=== PATIENT | female | born 1980 | race Caucasian/White ===

== ENCOUNTER 2023-06-07 08:48 | Outpatient (OUT) | payer OTHER, SELFPAY ==
[2023-06-07 09:01] LABS: Basophils Percent Auto 0.6 % (0.2-2.0); Eosinophils Absolute Auto 0.1 10^3/uL (0.0-0.7); Eosinophils Percent Auto 1.9 % (0.9-7.0); Hematocrit 36.6 % (36.0-48.0); Immature Granulocytes Abs Auto 0.01 10^3/uL (0.00-0.03); Immature Granulocytes Pct Auto 0.2 % (0.0-0.5); Lymphocytes Percent Auto 38.3 % (20.5-60.0); Mean Corpuscular HGB Conc 32.8 g/dL (29.9-35.2); Mean Corpuscular Hemoglobin 31.7 pg (26.7-34.0); Mean Corpuscular Volume 96.8 fL (81.0-99.0); Mean Platelet Volume 10.9 fL (9.5-13.5); Monocytes Absolute Auto 0.3 10^3/uL (0.3-0.8); Neutrophils Absolute Auto 2.7 10^3/uL (1.4-6.5); Platelet Count 282 10^3/uL (150-450); Red Blood Count 3.78 10^6/uL (4.20-5.40); Red Cell Distribution Width 11.6 % (11.0-15.0); White Blood Count 5.2 10^3/uL (4.0-11.0)
[2023-06-07 09:40] LABS: Alanine Aminotransferase 16 U/L (14-59); Albumin Globulin Ratio 1.1; Albumin Level 3.8 g/dL (3.4-5.0); Alkaline Phosphatase 132 U/L (46-116); Anion Gap 10.5; Aspartate Amino Transferase 12 U/L (15-37); BUN Creatinine Ratio 10.9; Bilirubin Direct 0.1 mg/dL (0.0-0.2); Bilirubin Total 0.4 mg/dL (0.2-1.0); Calcium 8.7 mg/dL (8.5-10.1); Carbon Dioxide 28.5 mmol/L (21.0-32.0); Chloride 105 mmol/L (98-107); Estimated GFR (African America >60 (>=60); Estimated GFR (Non-African Ame >60 (>=60); Globulin 3.4 g/dL; Glucose 83 mg/dL (74-106); Sodium 140 mmol/L (136-145); Total Protein 7.2 g/dL (6.4-8.2)
[2023-06-10 01:07] LABS: Oxcarbazepine (Trileptal),S 10 ug/mL (10-35)
== END 2023-06-07 08:49 | disposition home or self-care (01) ==
LOC: LAB 08:48
PROVIDERS: Visit Provider Psychiatry & Neurology Neurology
DX: G40.909 Epilepsy, unspecified, not intractable, without status epilepticus (principal)
CPT/HCPCS: 36415; 80048; 80076; 80183; 85025

== ENCOUNTER 2024-05-16 09:19 | Outpatient (OUT) | payer OTHER, SELFPAY ==
[2024-05-16 09:45] LABS: Basophils Percent Auto 0.7 % (0.2-2.0); Eosinophils Absolute Auto 0.1 10^3/uL (0.0-0.7); Eosinophils Percent Auto 1.5 % (0.9-7.0); Hemoglobin 12.5 g/dL (12.0-16.0); Immature Granulocytes Abs Auto 0.02 10^3/uL (0.00-0.03); Immature Granulocytes Pct Auto 0.4 % (0.0-0.5); Lymphocytes Absolute Auto 1.8 10^3/uL (1.2-3.8); Mean Corpuscular HGB Conc 32.9 g/dL (29.9-35.2); Mean Corpuscular Hemoglobin 32.1 pg (26.7-34.0); Mean Corpuscular Volume 97.4 fL (81.0-99.0); Mean Platelet Volume 10.9 fL (9.5-13.5); Monocytes Absolute Auto 0.4 10^3/uL (0.3-0.8); Monocytes Percent Auto 6.7 % (1.7-12.0); Neutrophils Percent Auto 56.7 % (43.0-75.0); Platelet Count 263 10^3/uL (150-450); Red Cell Distribution Width 11.5 % (11.0-15.0); White Blood Count 5.4 10^3/uL (4.0-11.0)
[2024-05-16 10:43] LABS: Alanine Aminotransferase 10 U/L (14-59); Albumin Globulin Ratio 1.3; Alkaline Phosphatase 126 U/L (46-116); Anion Gap 8.8; Aspartate Amino Transferase 8 U/L (15-37); BUN Creatinine Ratio 6.8; Bilirubin Direct 0.1 mg/dL (0.0-0.2); Bilirubin Total 0.5 mg/dL (0.2-1.0); Calcium 9.1 mg/dL (8.5-10.1); Chloride 101 mmol/L (98-107); Estimated GFR (African America >60 (>=60); Estimated GFR (Non-African Ame >60 (>=60); Globulin 3.2 g/dL; Glucose 86 mg/dL (74-106); Potassium 3.8 mmol/L (3.5-5.1); Sodium 136 mmol/L (136-145); Total Protein 7.2 g/dL (6.4-8.2)
[2024-05-20 22:06] LABS: Oxcarbazepine (Trileptal),S 13 ug/mL (10-35)
== END 2024-05-16 09:20 | disposition home or self-care (01) ==
PROVIDERS: Visit Provider Nurse Practitioner Family
DX: G40.909 Epilepsy, unspecified, not intractable, without status epilepticus (principal)
CPT/HCPCS: 36415; 80048; 80076; 80183; 85025

== ENCOUNTER 2025-04-03 08:13 | Outpatient (OUT) | payer OTHER, SELFPAY ==
--- OUTSIDE RECORDS SUMMARY | 2025-03-20 13:40 | XMS_ITS | Encounter Summary ---
Author Organization [facility] Address [address] [place] [address] Care Team Providers Care Master [place] Name Role Phone Unavailable Primary Care Provider Unavailabl e Reason for Visit * Reason Comments Rash Encounter Details Date Type Department Care Team (Late st Contact Info) Description 03/20/2025 1:40 PM EDT Office Visit [facility] [address] [place] [address] Monica Ram PA [address] [place] [address] Rash and other nonspecific skin eruption (Primary Dx) Social History Tobacco Use Types Packs/Day Years Used Date Smoking Tobacco: Never Smokeless Tobacco: Never Alcohol Use Standard Drinks/Week Comments Never 0 (1 standard drink = 0.6 oz pur e alcohol) Comments Unknown Sex and Gender Information Value Date Recorded Sex Assigned at Not on file Legal Sex Female 4:11 PM EDT Gender Identity Not on file Sexual Orientation Not on file documented as of this encounter Progress Notes * KERWIN Swartz - 03/20/2025 1:40 PM EDT Images from the original note were not included. Rash Location: both legs Duration: started last 2023 Severity: moderate Quality: denies itch, denies burning, not painful Modifying Factors: spots become darker with sun exposure Associated symptoms: red spots Current treatments: Patient was seen in urgent care (03/14/25), recommended to follow up with dermatology. Urgent care wanted to due lab work to rule out lupus, and decided not to test at that time. Patient does have cerebral palsy. Patient's mother denies any family hx of lupus. Patient currently does not have a PCP. No joint pain and no swelling. New patient All pertinent medical history, medications, and allergies were reviewed. General Exam: alert, oriented to person, place, and time, normal affect, well appearing accompanied by mother A focused exam completed based on patient reported problems, see below: Skin Exam 1. RASH AND OTHER NONSPECIFIC SKIN ERUPTION Left Thigh - Anterior Erythematous to purplish macules Biopsy today, see procedure note. Suspicious of vasculitis. Patient denies fatigue, weight loss, chills, joint pain, chest pain, SOB,recent viral illness or new medicines Lesion biopsy - Left Thigh - Anterior Type of biopsy: punch Informed consent: discussed and consent obtained Informed consent comment: The risks and benefits were discussed. Risks include, but are not limitedto, bleeding, infection, scarring, pain, & nerve damage. An opportunity to ask questions prior to the procedure was permitted and questions were answered. Patient was prepped and draped in usual sterile fashion: Area cleansed with alcohol. Anesthesia: the lesion was anesthetized in a standard fashion Anesthetic: 1% lidocaine w/ epinephrine 1-100,000 buffered w/ 8.4% NaHCO3 Punch size: 4 mm (A biopsy by punch method was performed using a dermal punch) Suture size: 4-0 Suture type: nylon Suture type comment: Hemostasis was achieved with suture. Suture removal (days): 10 Hemostasis achieved with: suture Outcome: patient tolerated procedure well Post-procedure details: sterile dressing applied and wound care instructions given Post-procedure details comment: Emphasized the need to contact clinic for any signs of infection, uncontrollable bleeding, or complications. Dressing type: bandage Additional details: Amount of lidocaine used: 0.5 ml Number of sutures used: 4 Specimen sent for: H&E Photo taken Lesion biopsy - Left Thigh - Anterior Type of biopsy: punch Informed consent: discussed and consent obtained Informed consent comment: The risks and benefits were discussed. Risks include, but are not limitedto, bleeding, infection, scarring, pain, & nerve damage. An opportunity to ask questions prior to the procedure was permitted and questions were answered. Patient was prepped and draped in usual sterile fashion: Area cleansed with alcohol. Anesthesia: the lesion was anesthetized in a standard fashion Anesthetic: 1% lidocaine w/ epinephrine 1-100,000 buffered w/ 8.4% NaHCO3 Punch size: 4 mm (A biopsy by punch method was performed using a dermal punch) Suture size: 4-0 Suture type: nylon Suture type comment: Hemostasis was achieved with suture. Suture removal (days): 10 Hemostasis achieved with: suture Outcome: patient tolerated procedure well Post-procedure details: sterile dressing applied and wound care instructions given Post-procedure details comment: Emphasized the need to contact clinic for any signs of infection, uncontrollable bleeding, or complications. Dressing type: bandage Additional details: Amount of lidocaine used: 0.5 cc Number of sutures used: 2 Specimen sent for: DIF Photo taken Specimen A - Dermatopathology exam Differential Diagnosis: HSP vs. Leukocytoclastic vasculitis vs. Cutaneous lupus Check Margins: No Diagnosis: (R21) Rash and other nonspecific skin eruption Plan: Lesion biopsy Next Visit: 10-14 day suture removal documented in this encounter Plan of Treatment Upcoming Encounters Date Type Department Care Team (Late st Contact Info) Description 04/03/2025 11:20 AM EDT Office Visit [facility] [address] [place] [id number] Monica Ram PA [address] [place] [address] Scheduled Orders Name Type Priority Associated Diagnoses Order Schedule Dermatopathology exam Pathology and Cytology Timed Rash and other nonspecific skin eruption Release Upon Ordering for 1 Occurrences starting 03/20/2025 documented as of this encounter Procedures Procedure Name Priority Date/Time Associated Diagnosis Comments SKIN / NAIL BIOPSY Routine 03/20/2025 1: 54 PM EDT Rash and other nonspecific skin eruption SKIN / NAIL BIOPSY Routine 03/20/2025 1: 39 PM EDT Rash and other nonspecific skin eruption documented in this encounter Results * Lesion biopsy (03/20/2025 1:54 PM EDT) Narrative Ermelinda Manning LPN - 03/20/2025 1:54 PM EDT Type of biopsy: punch Informed consent: discussed and consent obtained Informed consent comment: The risks and benefits were discussed. Risks include, but are not limited to, bleeding, infection, scarring, pain, & nerve damage. An opportunity to ask questions prior to the procedure was permitted and questions were answered. Patient was prepped and draped in usual sterile fashion: Area cleansed with alcohol. Anesthesia: the lesion was anesthetized in a standard fashion Anesthetic: 1% lidocaine w/ epinephrine 1-100,000 buffered w/ 8.4% NaHCO3 Punch size: 4 mm (A biopsy by punch method was performed using a dermal punch) Suture size: 4-0 Suture type: nylon Suture type comment: Hemostasis was achieved with suture. Suture removal (days): 10 Hemostasis achieved with: suture Outcome: patient tolerated procedure well Post-procedure details: sterile dressing applied and wound care instructions given Post-procedure details comment: Emphasized the need to contact clinic for any signs of infection, uncontrollable bleeding, or complications. Dressing type: bandage Additional details: Amount of lidocaine used: 0.5 cc Number of sutures used: 4 Specimen sent for: DIF Photo taken [facility] DERM PROCEDURE ORDERABLES Lucille cabezas Result * Lesion biopsy (03/20/2025 1:39 PM EDT) Narrative Ermelinda Manning LPN - 03/20/2025 1:39 PM EDT Type of biopsy: punch Informed consent: discussed and consent obtained Informed consent comment: The risks and benefits were discussed. Risks include, but are not limited to, bleeding, infection, scarring, pain, & nerve damage. An opportunity to ask questions prior to the procedure was permitted and questions were answered. Patient was prepped and draped in usual sterile fashion: Area cleansed with alcohol. Anesthesia: the lesion was anesthetized in a standard fashion Anesthetic: 1% lidocaine w/ epinephrine 1-100,000 buffered w/ 8.4% NaHCO3 Punch size: 4 mm (A biopsy by punch method was performed using a dermal punch) Suture size: 4-0 Suture type: nylon Suture type comment: Hemostasis was achieved with suture. Suture removal (days): 10 Hemostasis achieved with: suture Outcome: patient tolerated procedure well Post-procedure details: sterile dressing applied and wound care instructions given Post-procedure details comment: Emphasized the need to contact clinic for any signs of infection, uncontrollable bleeding, or complications. Dressing type: bandage Additional details: Amount of lidocaine used: 0.5 ml Number of sutures used: 4 Specimen sent for: H&E Photo taken Monica SURESH DERM PROCEDURE ORDERABLES Lucille cabezas Result documented in this encounter Visit Diagnoses Diagnosis Rash and other nonspecific skin eruption- Primary documented in this encounter
--- OUTSIDE RECORDS SUMMARY | 2025-04-03 08:16 | XMS_ITS | Encounter Summary ---
Author Organization [facility] Address [address] [place] [address] Care Team Providers Care Sales Program Coordinator Name Role Phone Unavailable Primary Care Provider Unavailabl e Encounter Details Date Type Department Care Team (Latest Contact Info) Description 03/20/2025 Travel Social History Tobacco Use Types Packs/Day Years [...] on file documented as of this encounter Plan of Treatment Upcoming Encounters Date Type Department Care Team (Late st Contact Info) Description 04/03/2025 11:20 AM EDT Office Visit [facility] [address] [place] [address] Monica Ram PA [address] [place] [address] documented as of this encounter Visit Diagnoses Not on filedocumented in this encounter
--- OUTSIDE RECORDS SUMMARY | 2025-04-03 08:17 | XMS_ITS | Encounter Summary ---
Author Organization [facility] Address [address] [address] Care Team Providers Care Terrazzo Polisher Helper Name Role Phone Unavailable Primary Care Provider Unavailabl e Reason for Visit * Reason Onset Date Comments Results 04/01/2025 Encounter Details Date Type Department Care Team (Late Contact Info) Description 04/01/2025 Telephone [facility] [address] [place] [phone] Ermelinda Manning LPN [address] [place] [address] Results Social History Tobacco Use Types Packs/Day Years [...] on file documented as of this encounter Miscellaneous Notes * Telephone Encounter - Ermelinda Manning LPN - 04/01/2025 9:23 AM EDT Faxed [facility] requesting final pathology from biopsy completed on 03/20/2025. documented in this encounter Plan of Treatment Upcoming Encounters Date Type Department Care Team (Late Contact Info) Description 04/03/2025 11:20 AM EDT Office Visit [facility] [address] [place] [address] Monica Ram PA [address] [facility] [address] [place] [address] documented as of this encounter Visit Diagnoses Not on filedocumented in this encounter
--- OUTSIDE RECORDS SUMMARY | 2025-04-03 08:17 | XMS_ITS | Encounter Summary ---
Author Organization [facility] Address [address] [place] [address] Care Team Providers Care [place] Name Role Phone Unavailable Primary Care Provider Unavailabl e Encounter Details Date Type Department Care Team (Latest Contact Info) Description 03/28/2025 Travel Social History Tobacco Use Types Packs/Day [...] Dermatology [address] [place] [address] Monica Ram PA [address] [place] [address] documented as of this encounter Visit Diagnoses Not on filedocumented in this encounter
--- OUTSIDE RECORDS SUMMARY | 2025-04-03 08:17 | XMS_ITS | CCD ---
Author Organization [facility] Care Team Providers Care Pathology Tech Name Role Phone ZACHARIAH RAMIREZ Admitting Unavailable ZACHARIAH RAMIREZ Attending Unavailable CAMPOS, DR MALCOLM Grullon Primary Care Unavailable MISJamie, DR ZEPEDA Consulting Unavailable CAMPOS, DR MALCOLM Grullon Admitting Unavailable CAMPOS, DR MALCOLM Grullon Attending Unavailable CAMPOS, DR MALCOLM Grullon Primary Care Unavailable GASCA, DR MALCOLM Grullon Consulting Unavailable ELLIS, DR GALEANO Admitting Unavailable ELLIS, DR GALEANO Attending Unavailable CAMPOS, DR MALCOLM Grullon Primary Care Unavailable ELLIS, DR GALEANO Consulting Unavailable Unavailable Primary Care Provider UnavailLEILANI Oneill Attending Unavailable ANAAMRIA REDDY Attending Unavailable Medications Current Medications Medication Drug Class(es) Dates Sig (Normalized) Sig (Original) multivitamin (Theragran) tablet (2 sources) take 1 tablet by mouth once daily multivitamin (Theragran) tablet Take 1 tablet by mouth Daily Active OXcarbazepine 600 mg oral tablet (11 sources) Anti-epileptic Agent Start: 12-13-2023 End: 05-24-2024 take 0.5 tablet by mouth once daily in the morning, then take 1 tablet by mouth once daily OXcarbazepine (Trileptal) 600 MG tablet Indications: Epilepsy, unspecified, not intractable, without status epilepticus (HCC) TAKE 1/2 (ONE-HALF) OF A TABLET BY MOUTH EVERY MORNING and ONE TABLET EVERY NIGHT FOR 90 DAYS 135 tablet 3 05/24/2024 Active Problems Active Problems Problem Classification Problem Date Documented Da te Episodic/Chronic Epilepsy; convulsions (14 sources) Epilepsy, unspecified, not intractable, without status epilepticus; Translations: [Seizure disorder] Onset: 06-10-2022 Chronic Other liver diseases (2 sources) Elevated liver enzymes level; Translations: [Abnormal levels of other serum enzymes] 05-24-2024 Episodic Other skin disorders (2 sources) Eruption; Translations: [Rash and other nonspecific skin eruption] 03-20-2025 Episodic Paralysis (6 sources) Cerebral palsy; Translations: [Cerebral palsy, unspecified] Onset: 05-21-2024 05-21-2024 Chronic Unclassified (3 sources) CONTACT W/AND (SUSP) EXPOS COVID-19; Translations: [CONTACT W/AND (SUSP) EXPOS COVID-19] Onset: 03-26-2022 Past or Other Problems Problem Classification Problem Date Documented Da te Episodic/Chronic Unclassified (1 source) CONTACT W/AND (SUSP) EXPOS COVID-19; Translations: [CONTACT W/AND (SUSP) EXPOS COVID-19] Onset: 03-23-2022 Results Test Name Value Interpretation Reference Range Facility No Panel Informationon 03-20 Type of biopsy: punch Informed consent: discussed [...] 2 Specimen sent for: DIF Photo taken [facility] Type of biopsy: punch Informed consent: discussed [...] 4 Specimen sent for: H&E Photo taken [facility] e ALL CBC WITH AUTO DIFFon BASOPHILS ABSOLUTE AUTO 0.0 [facility] Basophils/100 WBC (Bld) 0.7 % 0.2 - 2.0 % [facility] Eosinophils/100 WBC (Bld) 1.5 % 0.9 - 7.0 % [facility] Erythrocyte distribution width (RBC) [Ratio] 11.5 % 11.0 - 15.0 % [facility] Hematocrit (Bld) [Volume fraction] 38.0 % 36.0 - 48.0 % [facility] e Hemoglobin (Bld) [Mass/Vol] 12.5 g/dL 12.0 - 16.0 g/dL [facility] IMMATURE GRANULOCYTES ABS AUTO 0.02 [facility] Immature granulocytes/100 WBC (Bld) 0.4 % 0.0 - 0.5 % [facility] Interpretation and review of laboratory results Abnormal [facility] LYMPHOCYTES ABSOLUTE AUTO 1.8 [facility] Lymphocytes/100 WBC (Bld) 34.0 % 20.5 - 60.0 % [facility] MCH (RBC) [Entitic mass] 32.1 pg 26.7 - 34.0 pg [facility] MCHC (RBC) [Mass/Vol] 32.9 g/dL 29.9 - 35.2 g/dL [facility] MCV (RBC) [Entitic vol] 97.4 fL 81.0 - 99.0 fL [facility] MONOCYTES ABSOLUTE AUTO 0.4 [facility] Monocytes/100 WBC (Bld) 6.7 % 1.7 - 12.0 % [facility] NEUTROPHILS ABSOLUTE AUTO 3.0 [facility] Neutrophils/100 WBC (Bld) 56.7 % 43.0 - 75.0 % [facility] Platelet mean volume (Bld) [Entitic vol] 10.9 fL 9.5 - 13.5 fL [facility] EO # 0.1 [facility] PLT 263 [facility] TB RBC 3.90 Low [facility] WBC 5.4 [facility] OXCARBAZEPINEon 06-15-2022 Oxcarbazepine 12 ug/mL Normal 10-35 [facility] Comment on above: Result Comment: This test was developed and its performance characteristics determined by [facility]. It has not been cleared or approved by the Food and Drug Administration. Detection Limit = 1 Performed By: #### O XCARB #### [facility] [address] [place] [address] Dr. Jocelyn Pride CBC AUTO DIFFon 06-10-2022 BASO # 0.0 103/ul Normal 0.0-0.1 [facility] Comment on above: Performed By: #### C BC #### [facility] [address] [place] [address] Dr. Jocelyn Pride Basophils/100 WBC (Bld) 0.4 % Normal 0.2-2.0 [facility] Comment on above: Performed By: #### C BC #### [facility] [address] [place] [address] Dr. Jocelyn Pride EO # 0.1 103/ul Normal 0.0-0.7 [facility] Comment on above: Performed By: #### C BC #### [facility] [address] [place] [address] Dr. Jocelyn Pride Eosinophils/100 WBC (Bld) 1.5 % Normal 0.9-7.0 [facility] Comment on above: Performed By: #### C BC #### [facility] [address] [place] [address] Dr. Jocelyn Pride Erythrocyte distribution width (RBC) [Ratio] 12.4 % Normal 11.0-15.0 [facility] Comment on above: Performed By: #### C BC #### [facility] [address] [place] [address] Dr. Jocelyn Pride Hematocrit (Bld) [Volume fraction] 37.3 % Normal 36.0-48.0 [facility] Comment on above: Performed By: #### C BC #### [facility] [address] [place] [address] Dr. Jocelyn Pride Hemoglobin (Bld) [Mass/Vol] 12.0 g/dL Normal 12.0-16.0 [facility] Comment on above: Performed By: #### C BC #### [facility] [address] [place] [address] Dr. Jocelyn Pride IG # 0.02 10e3/ul Normal 0.00-0.03 [facility] Comment on above: Performed By: #### C BC #### [facility] [address] [place] [address] Dr. Jocelyn Pride IG % 0.3 % Normal 0.0-0.5 [facility] Comment on above: Performed By: #### C BC #### [facility] [address] [place] [address] Dr. Jocelyn Pride LYMPH # 2.2 103/ul Normal 1.2-3.8 [facility] Comment on above: Performed By: #### C BC #### [facility] [address] [place] [address] Dr. Jocelyn Pride Lymphocytes/100 WBC (Bld) 32.7 % Normal 20.5-60.0 [facility] Comment on above: Performed By: #### C BC #### [facility] [address] [place] [address] Dr. Jocelyn Pride MANUAL DIFF REQ NO Normal [facility] Comment on above: Performed By: #### C BC #### [facility] [address] [place] [address] Dr. Jocelyn Pride MCH (RBC) [Entitic mass] 31.1 pg Normal 26.7-34.0 [facility] Comment on above: Performed By: #### C BC #### [facility] [address] [place] [address] Dr. Jocelyn Pride MCHC (RBC) [Mass/Vol] 32.2 g/dL Normal 29.9-35.2 [facility] Comment on above: Performed By: #### C BC #### [facility] [address] [place] [address] Dr. Jocelyn Pride MCV (RBC) [Entitic vol] 96.6 fL Normal 81.0-99.0 [facility] Comment on above: Performed By: #### C BC #### [facility] [address] [place] [address] Dr. Jocelyn Pride MONO # 0.4 103/ul Normal 0.3-0.8 [facility] Comment on above: Performed By: #### C BC #### [facility] [address] [place] [address] Dr. Jocelyn Pride Monocytes/100 WBC (Bld) 5.3 % Normal 1.7-12.0 [facility] Comment on above: Performed By: #### C BC #### [facility] [address] [place] [address] Dr. Jocelyn Pride NEUT # 4.1 103/ul Normal 1.4-6.5 [facility] Comment on above: Performed By: #### C BC #### [facility] [address] [place] [address] Dr. Jocelyn Pride Neutrophils/100 WBC (Bld) 59.8 % Normal 43.0-75.0 [facility] Comment on above: Performed By: #### C BC #### [facility] [address] [place] [address] Dr. Jocelyn Pride Platelet mean volume (Bld) [Entitic vol] 10.7 fL Normal 9.5-13.5 [facility] Comment on above: Performed By: #### C BC #### [facility] [address] [place] [address] Dr. Jocelyn Pride PLT 290 103/ul Normal 150-450 [facility] Comment on above: Performed By: #### C BC #### [facility] [address] [place] [address] Dr. Jocelyn Pride RBC 3.86 106/ul Critically low 4.20-5.40 [facility] Comment on above: Performed By: #### C BC #### [facility] [address] [place] [address] Dr. Jocelyn Pride WBC 6.8 103/ul Normal 4.0-11.0 [facility] Comment on above: Performed By: #### C BC #### [facility] [address] [place] [address] Dr. Jocelyn Pride LIVER PROFILEon 06-10-2022 Albumin [Mass/Vol] 3.6 g/dL Normal 3.4-5.0 [facility] Comment on above: Performed By: #### Nena CEDILLO, BMP #### [facility] [address] [place] [address] Dr. Jocelyn Pride Albumin/Globulin [Mass ratio] 1.1 {ratio} Normal [facility] Comment on above: Performed By: #### Nena CEDILLO, BMP #### [facility] [address] [place] [address] Dr. Jocelyn Pride ALP [Catalytic activity/Vol] 130 U/L Critically high 46-116 [facility] Comment on above: Performed By: #### Nena CEDILLO BMP #### [facility] [address] [place] [address] Dr. Jocelyn Pride ALT [Catalytic activity/Vol] 10 U/L Critically low 14-59 [facility] Comment on above: Performed By: #### Nena CEDILLO, BMP #### [facility] [address] [place] [address] Dr. Jocelyn Pride AST [Catalytic activity/Vol] 11 U/L Critically low 15-37 [facility] Comment on above: Performed By: #### Nena CEDILLO, BMP #### [facility] [address] [place] [address] Dr. Jocelyn Pride BILI, CONJUGATED 0.1 mg/dL Normal 0.0-0.2 [facility] Comment on above: Performed By: #### Nena CEDILLO, BMP #### [facility] [address] [place], [place] [id number] Dr. Jocelyn Pride Bilirubin [Mass/Vol] 0.2 mg/dL Normal 0.2-1.0 [facility] Comment on above: Performed By: #### L IVER, BMP #### [facility] [address] [place] [address] Dr. Jocelyn Pride Globulin (S) [Mass/Vol] 3.4 g/dL Normal [facility] Comment on above: Performed By: #### L IVER, BMP #### [facility] [address] [place] [address] Dr. Jocelyn Pride Protein [Mass/Vol] 7.0 g/dL Normal 6.4-8.2 [facility] Comment on above: Performed By: #### L IVER, BMP #### [facility] [address] [place] [address] Dr. Jocelyn Pride PROF CHEM 8 (BAS METB)on Anion gap [Moles/Vol] 11.5 mmol/L Normal [facility] Comment on above: Performed By: #### L IVER, BMP #### [facility] [address] [place] [address] Dr. Jocelyn Pride Calcium [Mass/Vol] 8.4 mg/dL Critically low 8.5-10.1 [facility] Comment on above: Performed By: #### L IVER, BMP #### [facility] [address] [place] [address] Dr. Jocelyn Pride Chloride [Moles/Vol] 105 mmol/L Normal 98-107 [facility] Comment on above: Performed By: #### L IVER, BMP #### [facility] [address] [place] [address] Dr. Jocelyn Pride CO2 [Moles/Vol] 26.8 mmol/L Normal 21.0-32.0 [facility] Comment on above: Performed By: #### L IVER, BMP #### [facility] [address] [place] [address] Dr. Jocelyn Pride Creatinine [Mass/Vol] 0.52 mg/dL Critically low 0.55-1.02 [facility] Comment on above: Performed By: #### L IVER, BMP #### [facility] [address] [address] [address] Jocelyn Pride EGFR-AF PRYDEINIG >60 Normal >=60 [facility] Comment on above: Performed By: #### L IVER, BMP #### [facility] [address] [address] [address] Jocelyn Pride EGFR-NON AF PRYDEINIG >60 Normal >=60 [facility] Comment on above: Performed By: #### L IVER, BMP #### [facility] [address] [address] [address] Jocelyn Pride Glucose [Mass/Vol] 90 mg/dL Normal 74-106 [facility] Comment on above: Performed By: #### L IVER, BMP #### [facility] [address] [address] [address] Jocelyn Pride Potassium [Moles/Vol] 4.3 mmol/L Normal 3.5-5.1 [facility] Comment on above: Performed By: #### L IVER, BMP #### [facility] [address] [address] [address] Jocelyn Pride Sodium [Moles/Vol] 139 mmol/L Normal 136-145 [facility] Comment on above: Performed By: #### L IVER, BMP #### [facility] [address] [address] [address] Jocelyn Pride Urea nitrogen [Mass/Vol] 6.0 mg/dL Critically low 7.0-18.0 [facility] Comment on above: Performed By: #### L IVER, BMP #### [facility] [address] [address] [address] Jocelyn Pride Urea nitrogen/Creatinine [Mass ratio] 11.5 mg/mg Normal [facility] Comment on above: Performed By: #### L IVER, BMP #### [facility] [address] [address] [address] Jocelyn Pride Covid-19 PCR ([facility])on SARS-CoV-2 (COVID-19) RNA WILL+probe Ql (Unsp spec) Not detected Normal NOT DETECTED [facility] Comment on above: Result Comment: This test is not yet approved or cleared by the [place] FDA. When there are no FDA-approved or cleared tests available, and other criteria are met, FDA can make tests available under an emergency access mechanism called an Emergency Use Authorization (EUA). The EUA for this test is supported by the [place] of Health and Human Service's (HHS's) declaration that circumstances exist to justify the emergency use of in vitro diagnostics for the detection and/or diagnosis of the virus that causes COVID-19. This EUA will remain in effect (meaning this test can be used) for the duration of the COVID-19 declaration justifying emergency of IVDs, unless it is terminated or revoked by FDA (after which the test may no longer be used). When diagnostic testing is negative, the possibility of a false negative should be considered in the context of a patient's recent exposures and the presence of clinical signs and symptoms consistent with SARS-CoV-2. Performed By: #### C VDTBH #### [facility] [address] [place] [address] Dr. Jocelyn Pride OXCARBAZEPINEon 07-07-2021 Oxcarbazepine 13 ug/mL Normal 10-35 [facility] Comment on above: Result Comment: This test was developed and its performance characteristics determined by [employer]. It has not been cleared or approved by the Food and Drug Administration. Detection Limit = 1 Performed By: #### O XCARB #### [facility] [address] [place] [address] Dr. Jocelyn Pride CBC AUTO DIFFon 07-01-2021 BASO # 0.0 103/ul Normal 0.0-0.1 [facility] Comment on above: Performed By: #### C BC #### [facility] [address] [place] [address] Dr. Jocelyn Pride Basophils/100 WBC (Bld) 0.5 % Normal 0.2-2.0 [facility] Comment on above: Performed By: #### C BC #### [facility] [address] [place] [address] Dr. Jocelyn Pride EO # 0.1 103/ul Normal 0.0-0.7 [facility] Comment on above: Performed By: #### C BC #### [facility] [address] [place] [address] Dr. Jocelyn Pride Eosinophils/100 WBC (Bld) 1.2 % Normal 0.9-7.0 [facility] Comment on above: Performed By: #### C BC #### [facility] [address] [place] [address] Dr. Jocelyn Pride Erythrocyte distribution width (RBC) [Ratio] 12.1 % Normal 11.0-15.0 [facility] Comment on above: Performed By: #### C BC #### [facility] [address] [place] [address] Dr. Jocelyn Pride Hematocrit (Bld) [Volume fraction] 40.7 % Normal 36.0-48.0 [facility] Comment on above: Performed By: #### C BC #### [facility] [address] [place] [address] Dr. Jocelyn Pride Hemoglobin (Bld) [Mass/Vol] 13.1 g/dL Normal 12.0-16.0 [facility] Comment on above: Performed By: #### C BC #### [facility] [address] [place] [address] Dr. Jocelyn Pride IG # 0.02 10e3/ul Normal 0.00-0.03 [facility] Comment on above: Performed By: #### C BC #### [facility] [address] [place] [address] Dr. Jocelyn Pride IG % 0.2 % Normal 0.0-0.5 [facility] Comment on above: Performed By: #### C BC #### [facility] [address] [place] [address] Dr. Jocelyn Pride LYMPH # 2.2 103/ul Normal 1.2-3.8 [facility] Comment on above: Performed By: #### C BC #### [facility] [address] [place] [address] Dr. Jocelyn Pride Lymphocytes/100 WBC (Bld) 26.7 % Normal 20.5-60.0 [facility] Comment on above: Performed By: #### C BC #### [facility] [address] [place] [address] Dr. Jocelyn Pride MANUAL DIFF REQ NO Normal [facility] Comment on above: Performed By: #### C BC #### [facility] [address] [place] [address] Dr. Jocelyn Pride MCH (RBC) [Entitic mass] 30.1 pg Normal 26.7-34.0 [facility] Comment on above: Performed By: #### C BC #### [facility] [address] [place] [address] Dr. Jocelyn Pride MCHC (RBC) [Mass/Vol] 32.2 g/dL Normal 29.9-35.2 [facility] Comment on above: Performed By: #### C BC #### [facility] [address] [place] [address] Dr. Jocelyn Pride MCV (RBC) [Entitic vol] 93.6 fL Normal 81.0-99.0 [facility] Comment on above: Performed By: #### C BC #### [facility] [address] [place] [address] Dr. Jocelyn Pride MONO # 0.5 103/ul Normal 0.3-0.8 [facility] Comment on above: Performed By: #### C BC #### [facility] [address] [place] [address] Dr. Jocelyn Pride Monocytes/100 WBC (Bld) 6.4 % Normal 1.7-12.0 [facility] Comment on above: Performed By: #### C BC #### [facility] [address] [place] [address] Dr. Jocelyn Pride NEUT # 5.3 103/ul Normal 1.4-6.5 [facility] Comment on above: Performed By: #### C BC #### [facility] [address] [place] [address] Dr. Jocelyn Pride Neutrophils/100 WBC (Bld) 65.0 % Normal 43.0-75.0 [facility] Comment on above: Performed By: #### C BC #### [facility] [address] [place] [address] Dr. Jocelyn Pride Platelet mean volume (Bld) [Entitic vol] 10.8 fL Normal 9.5-13.5 [facility] Comment on above: Performed By: #### C BC #### [facility] [address] [place] [address] Dr. Jocelyn Pride PLT 329 103/ul Normal 150-450 [facility] Comment on above: Performed By: #### C BC #### [facility] [address] [place] [address] Dr. Jocelyn Pride RBC 4.35 106/ul Normal 4.20-5.40 [facility] Comment on above: Performed By: #### C BC #### [facility] [address] [place] [address] Dr. Jocelyn Pride WBC 8.2 103/ul Normal 4.0-11.0 [facility] Comment on above: Performed By: #### C BC #### [facility] [address] [place] [address] Dr. Jocelyn Pride LIVER PROFILEon 07-01-2021 Albumin [Mass/Vol] 3.7 g/dL Normal 3.5-5.0 [facility] Comment on above: Performed By: #### B MP, LIVER #### [facility] [address] [place] [address] Dr. Jocelyn Pride Albumin/Globulin [Mass ratio] 1.0 {ratio} Normal [facility] Comment on above: Performed By: #### B MP, LIVER #### [facility] [address] [place] [address] Dr. Jocelyn Pride ALP [Catalytic activity/Vol] 145 U/L Critically high 38-126 [facility] Comment on above: Performed By: #### B MP, LIVER #### [facility] [address] [place] [address] Dr. Jocelyn Pride ALT [Catalytic activity/Vol] 13 U/L Normal 9-52 [facility] Comment on above: Performed By: #### B MP, LIVER #### [facility] [address] [place] [address] Dr. Jocelyn Pride AST [Catalytic activity/Vol] 12 U/L Critically low 14 [facility] Comment on above: Performed By: #### B MP, LIVER #### [facility] [address] [place] [address] Dr. Jocelyn Pride BILI, CONJUGATED 0.1 mg/dL Normal 0.0-0.3 [facility] Comment on above: Performed By: #### B MP, LIVER #### [facility] [address] [place] [address] Dr. Jocelyn Pride Bilirubin [Mass/Vol] 0.4 mg/dL Normal 0.2-1.3 [facility] Comment on above: Performed By: #### B MP, LIVER #### [facility] [address] [place] [address] Dr. Jocelyn Pride Globulin (S) [Mass/Vol] 3.8 g/dL Normal [facility] Comment on above: Performed By: #### B MP, LIVER #### [facility] [address] [place] [address] Dr. Jocelyn Pride Protein [Mass/Vol] 7.5 g/dL Normal 6.1-8.2 [facility] Comment on above: Performed By: #### B MP, LIVER #### [facility] [address] [place] [address] Dr. Jocelyn Pride PROF CHEM 8 (BAS METB)on Anion gap [Moles/Vol] 12.4 mmol/L Normal [facility] Comment on above: Performed By: #### B MP, LIVER #### [facility] [address] [place] [address] Dr. Jocelyn Pride Calcium [Mass/Vol] 9.0 mg/dL Normal 8.4-10.2 [facility] Comment on above: Performed By: #### B MP, LIVER #### [facility] [address] [place] [address] Dr. Jocelyn Pride Chloride [Moles/Vol] 103 mmol/L Normal 98-107 [facility] Comment on above: Performed By: #### B MP, LIVER #### [facility] [address] [place] [address] Dr. Jocelyn Pride CO2 [Moles/Vol] 27.9 mmol/L Normal 22.0-30.0 [facility] Comment on above: Performed By: #### B MP, LIVER #### [facility] [address] [place] [address] Dr. Jocelyn Pride Creatinine [Mass/Vol] 0.60 mg/dL Normal 0.52-1.04 [facility] Comment on above: Performed By: #### B MP, LIVER #### [facility] [address] [place] [address] Dr. Jocelyn Pride EGFR-AF PRYDEINIG >60 Normal >=60 [facility] Comment on above: Performed By: #### B MP, LIVER #### [facility] [address] [place] [address] Dr. Jocelyn Pride EGFR-NON AF PRYDEINIG >60 Normal >=60 [facility] Comment on above: Performed By: #### B MP, LIVER #### [facility] [address] [place] [address] Dr. Jocelyn Pride Glucose [Mass/Vol] 98 mg/dL Normal 74-106 [facility] Comment on above: Performed By: #### B MP, LIVER #### [facility] [address] [place] [address] Dr. Jocelyn Pride Potassium [Moles/Vol] 4.3 mmol/L Normal 3.4-5.0 [facility] Comment on above: Performed By: #### B MP, LIVER #### [facility] [address] [place] [address] Dr. Jocelyn Pride Sodium [Moles/Vol] 139 mmol/L Normal 137-145 [facility] Comment on above: Performed By: #### B MP, LIVER #### [facility] [address] [place] [address] Dr. Jocelyn Pride Urea nitrogen [Mass/Vol] 7.0 mg/dL Normal 7.0-17.0 [facility] Comment on above: Performed By: #### B MP, LIVER #### [facility] [address] [address] [address] Jocelyn Pride Urea nitrogen/Creatinine [Mass ratio] 11.7 mg/mg Normal [facility] Comment on above: Performed By: #### B MP, LIVER #### [facility] [address] [place], [place] [address] Dr. Jocelyn Pride Vital Signs Date Time Vital Sign Value Performing Clinician Faci lity 05-24-2024 08:35-0400 Body height 160 cm Anamaria Reddy [employer] Work Phone: [facility] 05-24-2024 08:35-0400 Body mass index (BMI) [Ratio] 27.46 kg/m2 Anamaria Reddy [employer] Work Phone: [facility] 05-24-2024 08:35-0400 Body weight 70.31 kg Anamaria Reddy [employer] Work Phone: [facility] 05-24-2024 08:35-0400 Diastolic blood pressure 82 mm[Hg] Anamaria Reddy [employer] Work Phone: [facility] 05-24-2024 08:35-0400 Heart rate 80 /min Anamaria Reddy [employer] Work Phone: [facility] 05-24-2024 08:35-0400 SaO2% (BldA) [Mass fraction] 97 % Anamaria Reddy [employer] Work Phone: [facility] 05-24-2024 08:35-0400 Systolic blood pressure 124 mm[Hg] Anamaria Reddy [employer] Work Phone: [facility] Healthcare Encounters Encounter Date Encounter Type Care Provider Facility Start: 03-20-2025 End: 03-20-2025 Pepeboo orderbird AGbarbara SURESH Work Phone: [facility] Start: 03-20-2025 End: 03-20-2025 Bamboo flowsbarbara SURESH Work Phone: [facility] Start: 03-20-2025 End: 03-20-2025 Patient encounter procedure Leilani Ram KERWIN Work Phone: [facility] Comment on above: Rash and other nonsp ecific skin eruption (Primary Dx) Start: 03-20-2025 End: 03-20-2025 ambulatory LEILANI RAM Not Available Start: 05-24-2024 End: 05-24-2024 Bamboo flowsheet Anamaria Reddy [employer] Work Phone: [facility] Start: 05-24-2024 End: 05-24-2024 Bamboo flowsheet Anamaria Reddy [employer] Work Phone: [facility] Start: 05-24-2024 End: 05-24-2024 Office outpatient visit 25 minutes Anamaria Reddy [employer] Work Phone: [facility] Comment on above: Seizure disorder (CM S/HCC) (Primary Dx); Epilepsy, unspecified, not intractable, without status epilepticus (CMS/HCC); Elevated liver enzymes Start: 05-24-2024 End: 05-24-2024 ambulatory ANAMARIA REDDY Not Available Start: 05-16-2024 End: 05-16-2024 Clinisync Result Encounter Anamaria Reddy [employer] Work Phone: [facility] External Department Unsolicited Start: 05-16-2024 End: 05-16-2024 Clinisync Result Encounter Anamaria Reddy [employer] Work Phone: [facility] External Department Unsolicited Start: 06-10-2022 End: 06-11-2022 ambulatory ZACHARIAH [place] Facility:[facility]1 Start: 03-23-2022 End: 03-23-[address] MALCOLM GASCA Facility:[facility] Start: 07-01-2021 End: 07-02-[address] WALESKA CORRAL Facility:[facility] Procedures Date Procedure Procedure Detail Performing Clinician Start: 03-20-2025 End: 03-20-2025 SKIN / NAIL BIOPSY Leilani Ram KERWIN Work Phone: Start: 05-16-2024 ALL CBC WITH AUTO DIFF Anamaria Reddy NP Work Phone: Plan of Treatment Date Care Activity Detail Author Start: 04-15-2025 End: 04-15-2025 Patient encounter procedure 04/15/2025 8:40 AM EDT Office Visit [facility] [address] [place] [address] Anamaria Reddy, NAVJOT [address] [place], [place] [facility] Start: 04-03-2025 End: 04-03-2025 Patient encounter procedure 04/03/2025 11:20 AM EDT Office Visit [facility] [address] [place] [address] Leilani Ram, PA [address] [place] [address] [facility] Start: 03-20-2025 End: 03-20-2025 Patient encounter procedure 03/20/2025 1:40 PM EDT Office Visit [facility] [address] [place] [address] Leilani Ram, PA [address] [place] [phone] Arrived [facility] Comment on above: Arrived Start: 05-24-2024 End: 05-24-2025 Basic metabolic 1998 panel - Serum or Plasma Basic metabolic panel Lab Routine Seizure disorder (CMS/HCC) Expected: 05/24/2024 (Approximate), Expires: 05/24/2025 [facility] Comment on above: Expected: 05/24/2024 (Approximate), Expi res: 05/24/2025 Start: 05-24-2024 End: 05-24-2025 CBC W Auto Differential panel - Blood CBC and differential Lab Routine Seizure disorder (CMS/HCC) Expected: 05/24/2024 (Approximate), Expires: 05/24/2025 [facility] Work Phone: Comment on above: Expected: 05/24/2024 (Approximate), Expi res: 05/24/2025 Start: 05-24-2024 End: 05-24-2025 Hepatic function 2000 panel - Serum or Plasma Hepatic function panel Lab Routine Seizure disorder (CMS/HCC) Expected: 05/24/2024 (Approximate), Expires: 05/24/2025 [facility] Comment on above: Expected: 05/24/2024 (Approximate), Expi res: 05/24/2025 Start: 05-24-2024 End: 05-24-2025 Oxcarbazepine level Oxcarbazepine level Lab Routine Seizure disorder (CMS/HCC) Expected: 05/24/2024 (Approximate), Expires: 05/24/2025 [facility] Comment on above: Expected: 05/24/2024 (Approximate), Expi res: 05/24/2025 Start: 05-24-2024 End: 05-24-2024 Patient encounter procedure [facility] [address] Comment on above: Arrived Dermatopathology exam Dermatopat hology exam Pathology and Cytology Timed Rash and other nonspecific skin eruption Release Upon Ordering for 1 Occurrences starting 03/20/2025 [facility] Healthcare Work Phone: Comment on above: Release Upon Ordering for 1 Occurrences starting 03/20/2025 Payers Date Payer Category Payer Unknown [id number] 2022 Private Health Insurance [id number] 2022 Private Health Insurance [id number] 1981 Unknown [id number] 1981 Unknown [id number] 1981 Unknown [id number] 1981 Unknown [id number] [id number] 1981 Unknown [id number] 1959 Self-pay [id number] Unknown [id number] Social History Date Type Detail Facility Start: 05-21-2024 End: 05-24-2024 Tobacco smoking status ARIS Never smoked tobacco [facility] Start: 05-21-2024 End: 03-20-2025 Alcoholic beverage intake Lifetime non-drinker (finding) [facility] Start: 05-21-2024 End: 03-20-2025 History of Social function [facility] Start: 05-21-2024 End: 03-20-2025 Tobacco use panel [facility] Start: 1980 Sex assigned at Not on file [facility] Start: 05-24-2024 Tobacco use and exposure Smokeless t obacco non-user [facility] Tobacco smoking stat [facility] Tobacco smoking consumption unknown [facility] History of Present illness Narrative 03-20-2025 KERWIN Swartz - 03/20/2025 1:40 PM EDT Note Date & Type Note Facility 03-20-2025 History of Presen t illness Narrative Images from the original note were not [...] weight loss, chills, joint pain, chest pain, SOB, recent viral illness or new medicines Lesion biopsy [...] day suture removal documented in this encounter [facility] Evaluation note Note Date & Type Note Facility Evaluation note Diagnosis Seizure disorder (CMS/HCC)- Primary Unspecified epilepsy without mention of intractable epilepsy Epilepsy, unspecified, not intractable, without status epilepticus (CMS/HCC) Elevated liver enzymes Other nonspecific abnormal serum enzyme levels documented in this encounter [facility] Evaluation note Note Date & Type Note Facility Evaluation note Diagnosis Rash and other nonspecific skin eruption- Primary documented in this encounter [facility] Summary Purpose Family History No Family History Records FoundNo Family History Records Found Advance Directives No Advanced Directives Records FoundNo Advanced Directives Records Found Additional Source Comments INFORMATION SOURCE (unrecogn ized section and content) DATE CREATED AUTHOR 06/16/[address] [facility] DATE CREATED AUTHOR AUTHOR'S ORGANIZ ATION 03/22/2025 [facility] EPIC Reason for Visit (unrecogniz ed section and content) Reason Comments Seizures Headache Reason Comments Rash FOR RECORDS PERTAINING TO PATIENTS WHO ARE OR HAVE BEEN ENROLLED IN A CHEMICAL DEPENDENCY/SUBSTANCEABUSE PROGRAM, SOME INFORMATION MAY BE OMITTED. This clinical summary was aggregated from multiple sources. Caution should be exercised in using it in the provision of clinical care. This summary normalizes information from multiple sources, and as a consequence, information in this document may materially change the coding, format and clinical context of patient data. In addition, data may be omitted in some cases. CLINICAL DECISIONS SHOULD BE BASED ON THE PRIMARY CLINICAL RECORDS. [facility] [email or web address] [facility]. provides no warranty or guarantee of the accuracy or completeness of information in this document.
--- OUTSIDE RECORDS SUMMARY | 2025-04-03 08:17 | XMS_ITS | Encounter Summary ---
Author Organization [facility] Address [address] [place] [address] Care Team Providers Care Manager Program Management Name Role Phone Unavailable Primary Care Provider Unavailabl e Encounter Details Date Type Department Care Team (Late st Contact Info) Description 03/20/2025 Bamboo flowsheet [facility] [address] [place] [address] Monica Ram PA [address] [place] [address] Social History Tobacco Use Types Packs/Day Years [...] Description 04/03/2025 11:20 AM EDT Office Visit [facility] [address] [place] [address] Monica Ram PA [address] [place] [address] documented as of this encounter Visit Diagnoses Not on filedocumented in this encounter
--- OUTSIDE RECORDS SUMMARY | 2025-04-03 08:18 | XMS_ITS | Clinical Summary ---
Author Organization [facility] Address [address] [place] [address] Care Team Providers Care Boiling Off Winder Name Role Phone Unavailable Primary Care Provider Unavailabl e Allergies No known active allergies Medications OXcarbazepine (Trileptal) 600 MG tabletIndication s:Epilepsy, unspecified, not intractable, without status epilepticus (HCC) TAKE 1/2 (ONE-HALF) OF A TABLET BY MOUTH EVERY MORNING and ONE TABLET EVERY NIGHT FOR 90 DAYS 135 tablet 3 05/24/2024 Active multivitamin (Theragran) tablet Take 1 tablet by mouth Daily Active Active Problems Problem Noted Date Diagnosed Date Seizure disorder 05/21/2024 Cerebral palsy 05/21/2024 Encounters Date Type Department Care Team Description 04/01/2025 Telephone [facility] [address] [place] [phone] Ermelinda Manning LPN Results 03/28/2025 Travel 03/20/2025 1:40 PM EDT Office Visit [facility] [address] [place] [phone] Monica Ram PA Rash and other nonspecific skin eruption (Primary Dx) 03/20/2025 Bamboo flowsheet [facility] [address] [place] [address] Monica Ram PA 03/20/2025 Travel from Last 3 Months Family History Medical History Relation Name Comments Cancer Other Diabetes Other Melanoma Neg Hx Relation Name Status Comments Other Social History Tobacco Use Types Packs/Day Years Used Date Smoking Tobacco: Never Smokeless Tobacco: Never Alcohol Use Standard Drinks/Week Comments Never 0 (1 standard drink = 0.6 oz pur e alcohol) Comments Unknown Sex and Gender Information Value Date Recorded Sex Assigned at Not on file Legal Sex Female 4:11 PM EDT Gender Identity Not on file Sexual Orientation Not on file Last Filed Vital Signs Vital Sign Reading Time Taken Comments Blood Pressure 124/82 05/24/2024 8:35 AM EDT Pulse 80 05/24/2024 8:35 AM EDT Temperature - - Respiratory Rate - - Oxygen Saturation 97% 05/24/2024 8:35 AM EDT Inhaled Oxygen Concentration - - Weight 70.3 kg (155 lb) 05/24/2024 8:35 AM EDT Height 160 cm (5' 3 ) 05/24/2024 8:35 AM EDT Body Mass Index 27.46 05/24/2024 8:35 AM EDT Plan of Treatment Upcoming Encounters Date Type Department Care Team (Late st Contact Info) Description 04/03/2025 11:20 AM EDT Office Visit [facility] [address] [place] [phone] Monica Ram PA [address] [place] [phone] Procedures Procedure Name Priority Date/Time Associated Diagnosis Comments SKIN / NAIL BIOPSY Routine 03/20/2025 1: 54 PM EDT Rash and other nonspecific skin eruption SKIN / NAIL BIOPSY Routine 03/20/2025 1: 39 PM EDT Rash and other nonspecific skin eruption from Last 3 Months Results * Lesion biopsy (03/20/2025 1:54 PM [...] 4 Specimen sent for: DIF Photo taken [facility] DERM PROCEDURE ORDERABLES Lucille l Result * Lesion biopsy (03/20/2025 1:39 PM [...] 4 Specimen sent for: H&E Photo taken [facility] DERM PROCEDURE ORDERABLES Lucille l Result from Last [address] [place] [address] HETTICK Mo-DV
[2025-04-03 08:36] LABS: Hematocrit 38.6 % (36.0-48.0); Hemoglobin 13.1 g/dL (12.0-16.0); Immature Granulocytes Abs Auto 0.02 10^3/uL (0.00-0.03); Immature Granulocytes Pct Auto 0.4 % (0.0-0.5); Lymphocytes Absolute Auto 1.9 10^3/uL (1.2-3.8); Mean Corpuscular HGB Conc 33.9 g/dL (29.9-35.2); Mean Corpuscular Hemoglobin 32.0 pg (26.7-34.0); Mean Corpuscular Volume 94.1 fL (81.0-99.0); Platelet Count 312 10^3/uL (150-450); Red Blood Count 4.10 10^6/uL (4.20-5.40); White Blood Count 5.7 10^3/uL (4.0-11.0)
[2025-04-03 09:02] LABS: Alanine Aminotransferase 20 U/L (14-59); Albumin Globulin Ratio 1.0; Albumin Level 3.8 g/dL (3.4-5.0); Alkaline Phosphatase 125 U/L (46-116); Anion Gap 15.0; Aspartate Amino Transferase 10 U/L (15-37); Blood Urea Nitrogen 8.0 mg/dL (7.0-18.0); Calcium 8.8 mg/dL (8.5-10.1); Carbon Dioxide 26.2 mmol/L (21.0-32.0); Chloride 104 mmol/L (98-107); Estimated GFR (African America >60 (>=60 mL/min/1.73m^2); Estimated GFR (Non-African Ame >60 (>=60 mL/min/1.73m^2); Globulin 3.7 g/dL; Glucose 97 mg/dL (74-106); Potassium 4.2 mmol/L (3.5-5.1); Sodium 141 mmol/L (136-145); Total Protein 7.5 g/dL (6.4-8.2)
[2025-04-07 10:08] LABS: Oxcarbazepine (Trileptal),S 8 ug/mL (10-35)
== END 2025-04-03 08:14 | disposition home or self-care (01) ==
LOC: LAB 08:14
PROVIDERS: Visit Provider Nurse Practitioner Family
DX: G40.909 Epilepsy, unspecified, not intractable, without status epilepticus (principal)
CPT/HCPCS: 36415; 80048; 80076; 80183; 85025